=== PATIENT | female | born 1940 | race Caucasian/White ===

== ENCOUNTER → 2019-10-27 | Outpatient (CLI) | payer MEDICARE, OTHER | LOC: CARD 09:55 | PROVIDERS: ATTEND Internal Medicine Cardiovascular Disease | DX: I11.9 Hypertensive heart disease without heart failure (principal); I08.1 Rheumatic disorders of both mitral and tricuspid valves ==

== ENCOUNTER → 2019-11-01 | Outpatient (CLI) | payer MEDICARE, OTHER ==
[~2019-11-01] VITALS: Ht 152 cm; Wt 93.0 kg
[~2019-11-01] MED LIST: CATHETER FLUSH 10 ML SYR IV PRN; REGADENOSON 0.4 MG/5 ML SYR (LEXISCAN) IV ONE
[2019-11-01 09:58] VITALS: BP 164/90
--- NOTE | 2019-11-01 14:03 | STRESS TEST ---
DATE OF SERVICE: 11/01/2019 LEXISCAN MYOVIEW STRESS TEST REPORT REFERRING PHYSICIAN: Dr. Evan Godoy. Baseline heart rate is 104. Baseline blood pressure 170/100. Baseline EKG is sinus rhythm with no ischemic changes. In summary, the patient was injected with 10.47 mCi of technetium-99 Myoview and the resting images were obtained. Then, the patient received 0.4 mg of Lexiscan followed by 29.4 mCi of technetium-99 Myoview. Throughout the test, there were no EKG changes. The resting and stress images were reviewed and compared in the short axis, horizontal long axis and vertical long axis views. Review of the images showed breast attenuation with no significant ischemia or infarction. SSS is 5, SDS is 5. TID value 1.05. On the gated images, the left ventricle appeared to be normal size with normal contractility. Calculated ejection fraction is 57%. CONCLUSION: 1. The patient tolerated the Lexiscan well. 2. Breast attenuation with no significant ischemia or infarction on SPECT images. 3. Normal left ventricular size with normal contractility. Calculated ejection fraction is 57%. Job ID: [id number] DocumentID: [id number] Dictated Date: 11/01/2019 12:39:50 Chief Inspector Date: 11/01/2019 14:03:42 Dictated By: ARACELI DAY MD
== END ==
LOC: CARD 08:01
PROVIDERS: ATTEND Internal Medicine Cardiovascular Disease
DX: I11.9 Hypertensive heart disease without heart failure (principal); I07.1 Rheumatic tricuspid insufficiency
CPT/HCPCS: 78452; 93017

== ENCOUNTER → 2021-07-24 | Outpatient (CLI) | payer MEDICARE, OTHER | LOC: CARD 09:30 | PROVIDERS: ATTEND Internal Medicine Cardiovascular Disease | DX: I35.1 Nonrheumatic aortic (valve) insufficiency (principal); I10 Essential (primary) hypertension | CPT/HCPCS: 93306 ==

== ENCOUNTER → 2023-02-11 | Outpatient (CLI) | payer MEDICARE, OTHER | LOC: CARD 09:11 | PROVIDERS: ATTEND Internal Medicine Cardiovascular Disease | DX: I35.1 Nonrheumatic aortic (valve) insufficiency (principal); I10 Essential (primary) hypertension | CPT/HCPCS: 93306 ==